=== PATIENT | male | born 1990 | race Two or more races ===

== ENCOUNTER 2021-10-14 14:47 | Emergency (ER) | payer SELFPAY ==
[~2021-10-14] VITALS: Ht 182.9 cm; Wt 136.1 kg
[2021-10-14] MEDS ORDERED: EPINEPHrine HCL 1 MG/10 ML SYRG IV ONE (14:55)
[2021-10-14] MEDS ORDERED: CALCIUM CHLOR(10%) 100MG/ML 10ML SYRINGE IV ONE (14:55)
== END 2021-10-14 15:08 ==
LOC: EDBD 14:47 → ER 14:54
DX: I46.9 Cardiac arrest, cause unspecified (principal); J96.90 Respiratory failure, unspecified, unspecified whether with hypoxia or hypercapnia
CPT/HCPCS: 31500; 36556; 92950; 99285; J0171